=== PATIENT | male | born 2005 | race Caucasian/White ===

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

== ENCOUNTER 2024-04-12 09:21 | Outpatient (CLI) | payer BC | END 2024-04-12 09:22 | disposition home or self-care (01) | LOC: BICRAD 09:21 | PROVIDERS: ATTEND Family Medicine | DX: M54.50 Low back pain, unspecified (principal); M54.6 Pain in thoracic spine; M43.17 Spondylolisthesis, lumbosacral region | CPT/HCPCS: 72072; 72110 ==